=== PATIENT | male | born 1935 | race African-American/Black ===

== ENCOUNTER 2016-10-09 09:57 | Inpatient (IN) | payer OTHER, BC ==
[~2016-10-09] VITALS: Ht 185.4 cm; Wt 114.8 kg
--- NOTE | ~2016-10-09 | EKG ---
[address] [address] ELECTROCARDIOGRAM REPORT Name: NAOMI JAIMESCody Room #: 457-P ADM IN M.R.#: [id number] Admission: 10/09/16 Attend Phys: Gio Wolf DO Discharge: Date of : 33 Report #: [id number] THIS REPORT FOR: //name// [facility] ED Test Date: 2016-10-09 Test Time: 10:03:59 Pat Name: GALINDO JAIMES Department: Room: [facility] Gender: M Cnc Manager: DANIELLA : 1935 Requested By: Lorraine Stockton Order Number: [id number] MD: Chito Hernandez Measurements Intervals [place] Rate: 76 P: 48 IN: 140 QRS: 48 QRSD: 81 T: 39 QT: 352 QTc: 396 Interpretive Statements Sinus rhythm Atrial premature complexes Compared to ECG 10/09/2014 14:17:17 Atrial premature complex(es) now present Electronically Signed On 10-09-2016 17:37:26 CDT by Chito Hernandez [email or web address] <ELECTRONICALLY SIGNED> By: Chito Hernandez MD, [facility] 10/09/16 1737 [id number] Chito Hernandez MD, [facility] /EPI
[2016-10-09 09:57] VITALS: BP 133/72
[2016-10-09] MEDS ORDERED: METFORMIN HCL500 MG PO (10:06)
[2016-10-09] MEDS ORDERED: LOPRESSOR50 PO (10:07)
[2016-10-09 10:36] LABS: HEMATOCRIT 33.3 % (42.0-52.0); HEMOGLOBIN 10.6 gm/dL (14.0-18.0); MCH 27.3 pg (26.0-34.0); MCV 85.3 fL (80.0-100.0); PLATELET COUNT 203 thou/uL (150-400); RDW 14.5 % (10.5-14.5); WBC 5.4 thou/uL (4.0-11.0)
[2016-10-09 10:57] LABS: ANION GAP 9 mmol/L (7-16); BUN 18 mg/dL (7-18); CALCIUM 9.1 mg/dL (8.5-10.1); CHLORIDE 104 mmol/L (98-107); CO2 27 mmol/L (21-32); CREATININE 1.2 mg/dL (0.7-1.3); GLUCOSE 148 mg/dL (74-106); SODIUM 140 mmol/L (136-145)
[2016-10-09 10:58] LABS: POTASSIUM 4.4 mmol/L (3.5-5.1)
[2016-10-09 11:02] LABS: ALBUMIN 3.5 g/dL (3.4-5.0); ALKALINE PHOSPHATASE 101 U/L (46-116); SGOT 25 U/L (15-37); SGPT 25 U/L (30-65); TOTAL BILIRUBIN 0.4 mg/dL (<0.1-1.0); TOTAL PROTEIN 7.3 g/dL (6.4-8.2); TROPONIN-I < 0.04 ng/mL (<0.04-0.07)
[2016-10-09 11:22] LABS: MANUAL DIFF YES
[2016-10-09 11:58] VITALS: BP 127/64
[2016-10-09 12:27] VITALS: BP 141/67
[2016-10-09 12:51] LABS: ABSOLUTE NEUTROPHILS 2.9 thou/uL (1.4-8.2); ATYPICAL LYMPHS 1 %; HYPOCHROMASIA SLIGHT; OVALOCYTES FEW; POIKILOCYTOSIS SLIGHT; TOTAL CELL COUNT 100
[2016-10-09] MEDS ORDERED: BAYER CHEWABLE81 MG PO (12:53)
[2016-10-09] MEDS ORDERED: LIPITOR 20 MG T20 M1 PO (12:54)
[2016-10-09] MEDS ORDERED: CALCIUM 600 +1 EAC1 PO (12:55)
[2016-10-09] MEDS ORDERED: COMBIVENT RESPIMAT INH (13:00)
[2016-10-09] MEDS ORDERED: CARDURA4 MG PO (13:02)
[2016-10-09] MEDS ORDERED: PEPCID20 MG PO (13:02)
[2016-10-09] MEDS ORDERED: [UNRECOGNIZED DRUG - OTHER] PO (13:03)
[2016-10-09] MEDS ORDERED: IRON325 PO (13:03)
[2016-10-09] MEDS ORDERED: FLONASE 0.05%50 MCG NASAL (13:04)
[2016-10-09] MEDS ORDERED: CENTRUM SILVER1 EAC4 PO (13:06)
[2016-10-09] MEDS ORDERED: LASIX 20 MG TAB20 MG PO (13:08)
[2016-10-09] MEDS ORDERED: LASIX 40 MG TAB40 M2 PO (13:09)
[2016-10-09] MEDS ORDERED: GABAPENTIN 100100 MG PO (13:11)
[2016-10-09] MEDS ORDERED: GLIPIZIDE 10 MG10 MG PO (13:12)
[2016-10-09] MEDS ORDERED: HYDROXYZINE HCL25 M1 PO (13:13)
[2016-10-09] MEDS ORDERED: LANTUS SUBQ (13:14)
[2016-10-09] MEDS ORDERED: XALATAN2.5 ML OPHTHALMIC (13:19)
[2016-10-09] MEDS ORDERED: FIBER THERAPY500 MG PO (13:20)
[2016-10-09] MEDS ORDERED: PERCOCET 10-321 EACH PO (13:24)
[2016-10-09] MEDS ORDERED: ALPRAZOLAM 0.50.5 M1 PO (13:26)
[2016-10-09 15:31] VITALS: BP 126/61
[2016-10-09 19:22] VITALS: BP 142/75
[2016-10-10 01:07] LABS: GLYCOHEMOGLOBIN (HGB A1C) 6.9 % (4.8-5.6)
[2016-10-10 04:19] VITALS: BP 135/63
[2016-10-10 05:59] LABS: ALBUMIN 3.5 g/dL (3.4-5.0); CALCIUM 8.9 mg/dL (8.5-10.1); CREATININE 1.2 mg/dL (0.7-1.3); MAGNESIUM 1.4 mg/dL (1.8-2.4); POTASSIUM 4.1 mmol/L (3.5-5.1); TOTAL BILIRUBIN 0.3 mg/dL (<0.1-1.0); TOTAL PROTEIN 7.2 g/dL (6.4-8.2)
[2016-10-10 07:50] VITALS: BP 157/75
[2016-10-10 11:26] VITALS: BP 153/74
[2016-10-10 11:34] VITALS: BP 153/74
[2016-10-10 13:45] VITALS: BP 153/74
== END 2016-10-10 15:12 | disposition home or self-care (01) | DRG 313 ==
LOC: ER 09:57 → EROBS 11:42 → 4W 11:42
PROVIDERS: Internal Medicine Geriatric Medicine; Physician Assistant
DX: R07.9 Chest pain, unspecified (principal); E11.9 Type 2 diabetes mellitus without complications; I48.91 Unspecified atrial fibrillation; I10 Essential (primary) hypertension; I25.10 Atherosclerotic heart disease of native coronary artery without angina pectoris; I25.2 Old myocardial infarction; Z87.891 Personal history of nicotine dependence; Z79.84 Long term (current) use of oral hypoglycemic drugs; Z79.899 Other long term (current) drug therapy
CPT/HCPCS: 10045